=== PATIENT | male | born 1985 | race Caucasian/White ===

== ENCOUNTER 2018-01-01 08:54 | Inpatient (IN) | payer OTHER ==
[~2018-01-01] VITALS: Ht 172.7 cm; Wt 70.3 kg
[~2018-01-01 08:54] MED LIST: DIPH50CA37 PO; Folic Acid PO; Gabapentin PO; HYDR-3895 PO; Ibuprofen PO; METH-33 PO
[2018-01-01] MEDS ORDERED: DICYCLOMINE HCL 20 MG TABLET PO PRN (11:15)
[2018-01-01] MEDS ORDERED: IBUPROFEN 600 MG TABLET PO PRN (11:15)
[2018-01-01] MEDS ORDERED: LORAZEPAM 1 MG TABLET PO PRN (11:15)
[2018-01-01] MEDS ORDERED: LORAZEPAM 2 MG/1 ML VIAL IM PRN (11:15)
[2018-01-01] MEDS ORDERED: LOPERAMIDE HCL 2 MG CAPSULE PO PRN ×2 (11:15)
[2018-01-01] MEDS ORDERED: ONDANSETRON ODT 4 MG TAB.RAPDIS SL PRN (11:15)
[2018-01-01] MEDS ORDERED: diphenhydrAMINE 50 MG CAPSULE PO PRN (11:15)
[2018-01-01] MEDS ORDERED: MAGNESIUM HYDROXIDE 30 ML LIQUID UDC PO PRN (11:15)
[2018-01-01] MEDS ORDERED: MAG HYDROX/AL HYDROX/SIMETH 30 ML LIQUID UDC PO PRN (11:15)
[2018-01-01] MEDS ORDERED: ACETAMINOPHEN 325 MG TABLET PO PRN (11:15)
[2018-01-01] MEDS ORDERED: MIRALAX 17 GM POWD.PACK PO PRN (11:15)
[2018-01-01] MEDS ORDERED: CLONIDINE HCL 0.1 MG TABLET PO PRN (11:15)
[2018-01-01] MEDS ORDERED: BUPRENORPHINE HCL 2 MG TAB.SUBL SL PRN (11:15)
[2018-01-01] MEDS ORDERED: ONDANSETRON 4 MG/2 ML VIAL IM PRN (11:15)
[2018-01-01 11:40] LABS: *AMPHETAMINE, URINE NEGATIVE (NEGATIVE); *BARBITURATE, URINE NEGATIVE (NEGATIVE); *CANNABINOID, URINE NEGATIVE (NEGATIVE); *COCCAINE, URINE NEGATIVE (NEGATIVE); *OPIATE, URINE POSITIVE (NEGATIVE); *PHENCYCLIDINE SCREEN,URINE NEGATIVE (NEGATIVE)
[2018-01-01 17:39] LABS: BASOPHILS # (AUTO) 0.1 K/uL (0.0-8.0); BASOPHILS % (AUTO) 1.2 % (0.0-2.0); EOSINOPHILS # (AUTO) 0.2 K/uL (0.0-0.7); EOSINOPHILS % (AUTO) 3.5 % (0.0-7.0); HEMATOCRIT 41.7 % (36.7-47.1); HEMOGLOBIN 14.6 g/dL (12.5-16.3); LYMPHOCYTES # (AUTO) 2.3 K/uL (20.0-40.0); LYMPHOCYTES % (AUTO) 42.9 % (20.5-51.5); MEAN CORPUSCULAR HEMOGLOBIN 31.1 uug (23.8-33.4); MEAN CORPUSCULAR HGB CONC 35 g/dL (32.5-36.3); MEAN CORPUSCULAR VOLUME 89.1 fL (73.0-96.2); MONOCYTES # (AUTO) 0.5 K/uL (2.0-10.0); MONOCYTES % (AUTO) 9.2 % (0.0-11.0); NEUTROPHILS # (AUTO) 2.3 K/uL (1.8-8.9); NEUTROPHILS % (AUTO) 43.2 % (38.5-71.5); PLATELET COUNT (AUTO) 166 K/uL (152-348); RED BLOOD CELL COUNT(AUTO) 4.68 MIL/uL (4.06-5.63); WHITE BLOOD COUNT (AUTO) 5.3 K/uL (3.6-10.2)
[2018-01-01 17:52] LABS: ETHANOL < 3 MG/DL (0-0)
[2018-01-01 17:57] LABS: ALANINE AMINOTRANSFERASE 37 U/L (16-63); ALKALINE PHOSPHATASE 58 U/L (50-136); ASPARTATE AMINOTRANSFERASE 26 U/L (15-37); BILIRUBIN,TOTAL 0.5 mg/dL (0.2-1.0); CARBON DIOXIDE 32 mmol/L (21-32); CHLORIDE 104 mmol/L (98-107); CREATININE 0.7 mg/dL (0.6-1.3); GLUCOSE 103 mg/dL (74-106); MAGNESIUM 1.9 mg/dL (1.8-2.4); POTASSIUM 4.2 mmol/L (3.5-5.1); TOTAL PROTEIN, SERUM 6.4 g/dL (6.4-8.2); UREA NITROGEN, BLOOD 9 mg/dL (7-18)
[2018-01-01 20:00] VITALS: BP 122/56
[2018-01-01] MEDS: LORAZEPAM 1 MG TABLET PO PRN (21:29)
[2018-01-01] MEDS: METHOCARBAMOL 750 MG TABLET PO PRN (21:29)
[2018-01-02] VITALS: BP 109/57
[2018-01-02 04:00] VITALS: BP 106/50
[2018-01-02 08:12] VITALS: BP 108/61
[2018-01-02] MEDS: BUPRENORPHINE HCL 2 MG TAB.SUBL SL SCH ×3 (08:48→20:45)
[2018-01-02] MEDS ORDERED: TUBERCULIN,PURIF.PROT.DERIV. 5 TU/0.1 ML TEST ID ONE (09:00)
[2018-01-02 13:50] VITALS: BP 125/77
[2018-01-02 17:42] VITALS: BP 125/77
[2018-01-02] MEDS: LORAZEPAM 1 MG TABLET PO PRN ×2 (17:42→20:44)
[2018-01-02 20:36] VITALS: BP 139/82
[2018-01-03 00:12] VITALS: BP 123/76
[2018-01-03 04:10] VITALS: BP 116/65
[2018-01-03 08:00] VITALS: BP 107/88
[2018-01-03] MEDS ORDERED: HYDROXYZINE PAMOATE 25 MG CAPSULE PO PRN (09:00)
[2018-01-03] MEDS ORDERED: BUPRENORPHINE HCL 2 MG TAB.SUBL SL SCH (09:00)
[2018-01-03] MEDS ORDERED: LORAZEPAM 1 MG TABLET PO PRN (11:45)
[2018-01-03 12:00] VITALS: BP 126/74
[2018-01-03 12:26] LABS: HEPATITIS B SURFACE AG Negative (Negative)
[2018-01-03] MEDS: BUPRENORPHINE HCL 2 MG TAB.SUBL SL SCH ×2 (14:26→20:19)
[2018-01-03 16:00] VITALS: BP 137/98
[2018-01-03 20:00] VITALS: BP 140/91
[2018-01-03] MEDS: CLONIDINE HCL 0.1 MG TABLET PO SCH (20:19)
[2018-01-04 08:00] VITALS: BP 113/64
[2018-01-04] MEDS: CLONIDINE HCL 0.1 MG TABLET PO SCH ×2 (08:24→20:34)
[2018-01-04] MEDS: BUPRENORPHINE HCL 2 MG TAB.SUBL SL SCH ×3 (08:24→20:34)
[2018-01-04 12:00] VITALS: BP 98/63
[2018-01-04] MEDS ORDERED: DIPH50CA37 PO (15:54)
[2018-01-04] MEDS ORDERED: DICY20TA28 PO (15:54)
[2018-01-04] MEDS ORDERED: IBUP-1955 PO (15:54)
[2018-01-04] MEDS ORDERED: METH-406 PO (15:54)
[2018-01-04] MEDS ORDERED: HYDR-3895 PO (15:54)
[2018-01-04] MEDS ORDERED: CLON0.1T14 PO (15:54)
[2018-01-04 16:00] VITALS: BP 116/75
[2018-01-04 20:00] VITALS: BP 125/78
[2018-01-05] VITALS: BP 124/74
[2018-01-05 08:00] VITALS: BP 98/68
[2018-01-05] MEDS ORDERED: BUPRENORPHINE HCL 2 MG TAB.SUBL SL SCH (09:00)
[2018-01-05] MEDS: CLONIDINE HCL 0.1 MG TABLET PO SCH ×2 (09:14→20:26)
[2018-01-05 12:00] VITALS: BP 112/69
[2018-01-05 16:00] VITALS: BP 117/75
[2018-01-05 20:00] VITALS: BP 113/74
[2018-01-05] MEDS: METHOCARBAMOL 750 MG TABLET PO PRN (20:25)
[2018-01-06 08:00] VITALS: BP 117/84
[2018-01-06 08:11] VITALS: BP 117/84
[2018-01-06] MEDS: CLONIDINE HCL 0.1 MG TABLET PO SCH (08:11)
[2018-01-06] MEDS: METHOCARBAMOL 750 MG TABLET PO PRN (08:14)
== END 2018-01-06 09:30 | disposition other institution (70) | DRG 895 ==
LOC: SRC 08:54
PROVIDERS: ADMIT Internal Medicine; ATTEND Internal Medicine
PROC: HZ2ZZZZ Detoxification Services for Substance Abuse Treatment (ICD-10-PCS; principal; 2018-01-01)
PROC: HZ41ZZZ Group Counseling for Substance Abuse Treatment, Behavioral (ICD-10-PCS; 2018-01-03)
PROC: HZ31ZZZ Individual Counseling for Substance Abuse Treatment, Behavioral (ICD-10-PCS; 2018-01-04)
DX: F11.23 Opioid dependence with withdrawal (principal); Z59.1 Inadequate housing; F13.239 Sedative, hypnotic or anxiolytic dependence with withdrawal, unspecified; Z81.1 Family history of alcohol abuse and dependence; Z88.2 Allergy status to sulfonamides; Z91.89 Other specified personal risk factors, not elsewhere classified; Z83.3 Family history of diabetes mellitus
CPT/HCPCS: 36415; 70030-TC; 80307; 80361; 83735; 85025; 86592; 86705; 86803; 87340; 87806; A4663; G0480; Q0162; Q0163